=== PATIENT | female | born 1955 | race Caucasian/White ===

== ENCOUNTER 2017-07-25 19:54 | Emergency (ER) | payer MEDICAID ==
[~2017-07-25] VITALS: Ht 165.1 cm; Wt 68.0 kg
[2017-07-25 20:04] VITALS: BP 149/88
--- NOTE | 2017-07-25 20:18 | NUR ---
Dr. Teresa evaluating patient
--- NOTE | 2017-07-25 20:18 | NUR ---
PT TAKEN TO ULTRASOUND
[2017-07-25] MEDS ORDERED: QUET25TA PO (20:22)
[2017-07-25] MEDS ORDERED: ALPR2TAB4 PO (20:22)
[2017-07-25] MEDS ORDERED: FENT100T TD (20:22)
[2017-07-25] MEDS ORDERED: ZOLP10TA1 PO (20:22)
--- NOTE | 2017-07-25 20:57 | NUR ---
PT RETURN FROM ULTRASOUND
--- NOTE | 2017-07-25 20:57 | NUR ---
Pt back from US and placed in bed 7.
--- NOTE | 2017-07-25 20:58 | NUR ---
Dr. Teresa re-evaluating patient at bedside.
--- NOTE | 2017-07-25 20:58 | NUR ---
61/F PRESENTS TO THE ER C/O RT BREAST PAIN X2 WEEKS. PMH DEGENERATIVE SPINAL DZ, ARTHRITIS, ANXIETY. PT STATES TWO WEEKS AGO SHE WAS GOING TO BED AND TRIPPED ON HER CAT AND FELL AND HIT HER RT SIDE. RT BREAST IS SWOLLEN, REDDENED, AND SENSITIVE TO TOUCH. PT STATES PAIN IS SHARP AND "HURTS REALLY BAD". NO DRAINAGE OR ACTIVE BLEEDING NOTED AT THE SITE AT THIS TIME. PT IS TAKING KEFLEX X1 WEEK AND IS WEARING A FENTNYL PATCH. PT IS IN BED WITH DAUGHTER AT BEDSIDE. ER MD NOTIFIED OF PT STATUS. COMFORT NEEDS MET AT THIS TIME.
--- NOTE | 2017-07-25 21:33 | NUR ---
Patient discharged with v/s stable. Written and verbal after care instructions given and explained. Patient verbalized understanding. Ambulatory with steady gait. All questions addressed prior to discharge. Advised to follow up with PMD.
[2017-07-25 21:35] VITALS: BP 137/74
== END 2017-07-25 21:33 | disposition home or self-care (01) ==
LOC: MED 19:54
DX: N61.1 Abscess of the breast and nipple (principal); W18.39XA Other fall on same level, initial encounter; Y93.89 Activity, other specified; Y92.89 Other specified places as the place of occurrence of the external cause; Y99.8 Other external cause status; R03.0 Elevated blood-pressure reading, without diagnosis of hypertension; Z88.1 Allergy status to other antibiotic agents; F41.9 Anxiety disorder, unspecified; M19.90 Unspecified osteoarthritis, unspecified site
CPT/HCPCS: 76641; 99284